=== PATIENT | female | born 1980 | race Hispanic/Latino ===

== ENCOUNTER 2016-05-23 10:41 | Emergency (ER) | payer OTHER ==
[~2016-05-23] VITALS: Ht 162.6 cm; Wt 86.2 kg
--- NOTE | 2016-05-23 11:02 | ED GI/GU/ABDOMINAL COMPLAINT ---
History of Present Illness General Chief Complaint: Abdominal Pain/Flank Pain Stated Complaint: BIBA ABD PAIN Source: patient Exam Limitations: clinical condition Allergies Coded Allergies: No Known Drug Allergies (05/23/16) Reconcile Medications Oxycodone HCl/Acetaminophen (Percocet 5-325 MG Tablet) 5 MG-325 MG TABLET 1 TAB PO Q6H PRN PAIN Triage Note: C/O SUDDEN ONSET OF LEFT SIDED ABDOMINAL PAIN, X 1 HOUR, DENIES VOMITING OR DIARRHEA. LMP: 05/21. PMH: ANEMEA Triage Nurses Notes Reviewed? yes ? n Is pt currently ? No HPI: Patient is a 35-year-old female presents complaining of severe 10 out of 10 left flank pain. Pain sun onset this morning when patient went to sit up in bed. No exacerbating or alleviating factors. Positive associated nausea and vomiting. Patient is currently on her menstrual period. Patient has a history of ovarian cysts, reports this pain feels different than previous pain. Last bowel movement was this morning and normal. Patient denies dysuria, urgency, frequency, hematemesis, fevers, chills (ADRIEL MORGAN) Vital Signs & Intake/Output Vital Signs & Intake/Output Vital Signs Date Time Temp Pulse Resp B/P Pulse O2 O2 Flow FiO2 Ox Delivery Rate 05/23 1715 99.5 93 16 108/62 98 Room Air 05/23 1420 99.5 114 16 117/63 98 Room Air 05/23 1356 100.7 05/23 1341 100.7 05/23 1319 110 18 133/77 99 Room Air 05/23 1128 16 143/78 99 Room Air 05/23 1115 Room Air 05/23 1115 156/76 05/23 1050 99.0 100 18 153/73 100 Room Air Past History Travel History Traveled to [place] past 21 day No Medical History Any Pertinent Medical History? see below for history Blood Disorders: anemia Surgical History Surgical History: non-contributory Psychosocial History What is your primary language Citizen Of [place] Tobacco Use: Never used Family History Hx Contributory? No (ADRIEL MORGAN) Review of Systems Review of Systems Constitutional: Denies: chills, fever. EENTM: Reports: no symptoms. Respiratory: Denies: cough, short of breath. Cardiovascular: Denies: chest pain. GI: Reports: abdominal pain, nausea, vomiting. Denies: diarrhea. Genitourinary: Denies: dysuria, frequency, urgency. Musculoskeletal: Reports: back pain. Skin: Reports: no symptoms. Neurological/Psychological: Reports: no symptoms. Hematologic/Endocrine: Reports: no symptoms. Immunologic/Allergic: Reports: no symptoms. (PETER MYERS,ADRIEL) Physical Exam Physical Exam General Appearance: alert, awake, severe distress Head: atraumatic, normal appearance Eyes: Bilateral: normal appearance, PERRL, EOMI. Ears, Nose, Throat, Mouth: hearing grossly normal, moist mucous membrane Neck: normal inspection, supple, full range of motion Respiratory: normal breath sounds, chest non-tender, no respiratory distress, lungs clear Cardiovascular: tachycardia (REGULAR RHYTHM, NO MURMUR) Gastrointestinal: normal bowel sounds, soft, left mid abdominal tenderness with guarding Back: normal inspection, normal range of motion, CVA tenderness (L) Extremities: normal range of motion Neurologic/Psych: no motor/sensory deficits, awake, alert, oriented x 3, normal gait Skin: intact, normal color, warm/dry Core Measures ACS in differential dx? No Severe Sepsis Present: No Septic Shock Present: No (ADRIEL MORGAN) Progress Differential Diagnosis: ovarian cyst, ovarian torsion, uterine fibroids, kidney stone, pyelonephritis, diverticulitis, intra-abdominal abscess, PID, anemia, internal bleeding Diagnostic Imaging: Viewed by Me: Radiology Read, CT Scan. Discussed w/RAD: Radiology Read, CT Scan. Radiology Impression: PATIENT: ANJU ESCALERA PRESENT AGE: 35 PATIENT ACCOUNT NO: [id number] : 82 LOCATION: [facility] ORDERING PHYSICIAN: ADRIEL MYERS SERVICE DATE: 05/23/16 EXAM TYPE: US - US-TRANSVAGINAL EXAMINATION: TRANSVAGINAL AND TRANSABDOMINAL ULTRASOUND OF THE PELVIS CLINICAL INFORMATION: Severe left flank pain and left pelvic pain. History of ovarian cyst. COMPARISON: CT abdomen and pelvis from the same date TECHNIQUE: Real-time scanning of the pelvis is acquired via transabdominal and transvaginal approach. Transvaginal images were obtained for more detailed evaluation of the ovaries and endometrium. FINDINGS: UTERUS: Anteverted. Enlarged, measuring 11.8 x 7.5 x 8.8 cm (SAG x AP x TRANS). A 1.6 x 1.8 x 1.7 cm hypoechoic focus within the endometrium near the fundus has increased through transmission and no internal blood flow on color Doppler. This is of uncertain etiology, potentially a endometrial cyst. A polyp is also a possibility, though less likely. A 1.7 cm fibroid is likely present in the left anterolateral aspect of uterine body, though was not discretely measured. The junctional zone is not well seen. Maximum Endometrial Thickness: 0.9 cm ( exclusive of the cystic focus near the fundus). Cervical Length: 3.3 cm. Nabothian cysts are present within the cervix. OVARIES AND ADNEXA: Ovaries are normal in size and appearance. No adnexal mass. Multiple peripheral follicles are present bilaterally, measuring between 0.4 and 0.7 cm. Arterial and venous waveforms are present in both ovaries on spectral Doppler evaluation. Right Ovary: 2.6 x 2.0 x 2.1 cm, volume 6 mL. Left Ovary: 2.8 x 2.0 x 1.9 cm, volume 5.5 mL. FREE FLUID: None. IMPRESSION: 1. No acute intrapelvic abnormalities. 2. Large uterus with a single discrete 1.7 cm uterine fibroid. Additional smaller or indistinct fibroids are possible. Indistinctness of the junctional zone of the myometrium raises the possibility of adenomyosis, although this is nonspecific. Consider correlation with pelvic MRI if warranted. 3. A 1.7 cm hypoechoic cystic focus within the endometrial canal this is of uncertain etiology, potentially due to early menstrual changes. Correlation with the phase of menstrual cycle is advised. This cause either further evaluated with MRI. 4. Multiple peripheral follicles in both ovaries, a nonspecific appearance that can be seen with polycystic ovarian syndrome (given the appropriate clinical and laboratory findings). DICTATED BY: GREG JESUS MD DATE/TIME DICTATED:05/23/161254 MEDICAL ESTHETICIAN:JUANCARLOS DATE/TIME TRANSCRIBED:05/23/161254 CONFIDENTIAL, DO NOT COPY WITHOUT APPROPRIATE AUTHORIZATION. <Electronically signed in Other Vendor System> SIGNED BY: GREG JESUS MD 05/23/16 1313, PATIENT: ANJU ESCALERA PRESENT AGE: 35 PATIENT ACCOUNT NO: [id number] : 82 LOCATION: [facility] ORDERING PHYSICIAN: ADRIEL MYERS SERVICE DATE: 05/23/16 EXAM TYPE: CAT - CT ABD & PELVIS W/ O IV CONTRAS EXAMINATION: CT ABDOMEN AND PELVIS WITHOUT CONTRAST CLINICAL INFORMATION: Severe left flank pain. Evaluate for kidney stone. COMPARISON: Pelvic ultrasound performed the same day. TECHNIQUE: Multidetector volumetric imaging was performed from the superior aspect of the liver through the pubic symphysis. Sagittal and coronal reformatted images were obtained on the technologist's workstation. DLP: 484 mGy-cm FINDINGS: LUNG BASES: The visualized lung bases are unremarkable. LIVER, GALLBLADDER, AND BILIARY TREE: The liver is normal in size, shape, and attenuation. No focal hepatic lesion or biliary ductal dilatation is present. The gallbladder is unremarkable with no evidence of radiopaque gallstones, gallbladder wall thickening, or obvious pericholecystic inflammatory changes. PANCREAS: Unremarkable. SPLEEN: Unremarkable. ADRENAL GLANDS: Unremarkable. KIDNEYS AND URETERS: The kidneys are normal in size, shape, and attenuation. No hydronephrosis or hydroureter seen. No perinephric stranding. There is a 0.2 cm left midpole nonobstructing calculus 10.5 cm from the posterior axillary line. There are adjacent 0.2 cm right lower pole calculi 11 cm from the posterior axillary line. BLADDER: Unremarkable. GASTROINTESTINAL TRACT: The stomach and small bowel appear unremarkable. No dilated loops of bowel or evidence of obstruction. Normal appendix. No colonic wall thickening or inflammatory changes. No free air or free fluid. ABDOMINAL WALL: No significant hernia is appreciated. LYMPH NODES: Normal. VASCULAR: Normal caliber aorta. Multiple phleboliths are noted. PELVIC VISCERA: The uterus is prominent with lobulations. There is somewhat heterogeneous attenuation in the region of the lobulations, suggestive of uterine fibroids. The endometrial abnormality seen on the ultrasound is not well visualized on this CT. No adnexal mass. OSSEOUS STRUCTURES: No acute or suspicious osseous abnormality. IMPRESSION : 1. No hydronephrosis. Tiny bilateral nonobstructing renal calculi. 2. Prominent uterus with heterogeneous lobulations suggestive of uterine fibroids. The endometrial abnormality which was visualized on the ultrasound is not well seen on this study. DICTATED BY: TELLO DOVE,AMI DATE/TIME DICTATED:1254 MEDICAL ESTHETICIAN:JUANCARLOS DATE/TIME TRANSCRIBED:05/23/161254 CONFIDENTIAL, DO NOT COPY WITHOUT APPROPRIATE AUTHORIZATION. <Electronically signed in Other Vendor System> SIGNED BY: TELLO DOVE,AMI 05/23/16 1311 Initial ED EKG: none (ADRIEL MORGAN) Plan of Care: Orders Procedure Date/time Status BLOOD PRODUCT PICKUP 05/23 1322 Active LEUKOCYTE POOR (PACKED CELLS) 05/23 1139 Active Add-on Test (ER Only) 05/23 1136 Active TYPE & SCREEN (NOT X-MATCH) 05/23 1115 Active Add-on Test (ER Only) 05/23 1108 Active URINALYSIS 05/23 1056 Complete HUMAN BETA HCG SCREEN 05/23 1056 Complete COMPREHENSIVE METABOLIC PANEL 05/23 1056 Complete CBC WITHOUT DIFFERENTIAL 05/23 1056 Complete Laboratory Tests 05/23/16 1200: Urinalysis LIGHT H, Urine Color YEL, Urine Clarity CLDY H, Urine pH 6.0, Ur Specific [place] 1.025, Urine Protein 30 H, Urine Ketones NEG, Urine Nitrite NEG, Urine Bilirubin NEG, Urine Urobilinogen 0.2, Ur Leukocyte Esterase TRACE H , Ur Microscopic SEDIMENT EXAMINED, Urine RBC 5-10 H, Urine WBC 5-10 H, Ur Epithelial Cells MANY H, Urine Bacteria MANY H, Urine Hemoglobin LARGE H, Urine Glucose NEG 05/23/16 1115: Anion Gap 11, Estimated GFR > 60, BUN/Creatinine Ratio 13.3, Glucose 103 H, Calcium 9.3, Total Bilirubin 0.6, AST 37 H, ALT 31, Alkaline Phosphatase 77, Total Protein 7.9, Albumin 4.2, Globulin 3.7, Albumin/Globulin Ratio 1.1, Total Beta HCG NEGATIVE, CBC w Diff MAN DIFF ORDERED, RBC 3.25 L, MCV 61.0 L, MCH 17.3 L, RDW 22.6 H, MPV 7.4, Gran % 85.0 H, Lymphocytes % 14.6 L, Monocytes % 0.1 L, Eosinophils % 0.3, Basophils % 0 L, Absolute Granulocytes 8.3 H, Absolute Lymphocytes 1.4, Absolute Monocytes 0 L, Absolute Eosinophils 0, Absolute Basophils 0, Platelet Estimate VERIFIED BY SMEAR, Polychromasia 1+, Hypochromic-Microcytic 2+, Poikilocytosis FEW, Microcytic Cells 2+, PUBS MCHC 28.3 L 05/23/2016 11:40:15 AM: Pain moderately improved. Discussed results of CBC with patient. Patient reports that she has chronic anemia, has required blood transfusions in the past. Patient does not know the source of her anemia, does not have a primary doctor or RA[employer]ROAD [employer]ER at this time. Patient reports that she has had heavy menstrual periods previously. 05/23/2016 12:00:27 PM: Discussed with Dr. Foster. Patient tolerated blood transfusion well. Patient ambulatory without difficulty , no chest pain or dyspnea. Appears stable for discharge after blood transfusion, stressed importance of close outpatient follow-up. (ADRIEL MORGAN) Departure Departure Disposition: HOME OR SELF CARE Condition: Stable Clinical Impression Primary Impression: Left flank pain Secondary Impressions: Anemia, Uterine fibroid Referrals: TIMOTHY DOVE,KUSH CASTELLANOS MD,ADRIEL Huizar Additional Instructions: Follow up with Dr. Castellanos(credit control assistant) for further evaluation of your pain and heavy menstrual bleeding. Also follo wup with Dr. Lay(primary doctor) for further evaluation. Call in the morning for appointment to be seen within 1 week for further evaluation. Return to the ER if pain increasing, unable to stay hydrated, lightheaded, shortness of breath, chest pain or worsening of symptoms. Departure Forms: Customer Survey General Discharge Information Prescriptions: Current Visit Scripts Oxycodone HCl/Acetaminophen (Percocet 5-325 MG Tablet) 1 TAB PO Q6H PRN PAIN #10 TAB (ADRIEL MORGAN) PA/FIELD ARTILL[employer] OPERATIONS SPECIALIST Co-Sign Statement Statement: ED Attending supervision documentation- [] I saw and evaluated the patient. I have also reviewed all the pertinent lab results and diagnostic results. I agree with the findings and the plan of care as documented in the PA's/FIELD ARTILL[employer] OPERATIONS SPECIALIST's documentation. [X] I have reviewed the ED Record and agree with the PA's/FIELD ARTILLERY OPERATIONS SPECIALIST's documentation. [] Additions or exceptions (if any) to the PAs/FIELD ARTILLERY OPERATIONS SPECIALIST's note and plan are summarized below: [] (TRACY DOVE,CLAUS Newby)
[2016-05-23 11:27] LABS: ABSOLUTE EOSINOPHIL COUNT 0 /CUMM (0.0-0.7); EOSINOPHIL % 0.3 % (0-5); MEAN CORPUSCULAR HGB 17.3 PG (27.0-31.0)
[2016-05-23 11:30] LABS: ABSOLUTE BASOPHIL COUNT 0 /CUMM (0.0-0.2); ABSOLUTE GRANULOCYTE CT 8.3 /CUMM (1.4-6.5); ABSOLUTE LYMPH COUNT 1.4 /CUMM (1.2-3.4); ABSOLUTE MONOCYTE COUNT 0 /CUMM (0.10-0.60); BASOPHIL % 0 % (0.0-2.0); MEAN CORPUSCULAR HGB CONC 28.3 G/DL (33.0-37.0); MEAN PLATELET VOLUME 7.4 FL (7.4-10.4); PLATELET COUNT 501 /CUMM (130-400); RBC DISTRIBUTION WIDTH 22.6 % (11.5-14.5); RED BLOOD CELL CT 3.25 /CUMM (4.20-5.40); WHITE BLOOD CELL COUNT 9.8 /CUMM (4.8-10.8)
[2016-05-23 11:33] LABS: HEMATOCRIT 19.8 % (37-47)
--- NOTE | 2016-05-23 13:11 | CT SCAN REPORT ---
EXAMINATION: CT ABDOMEN AND PELVIS WITHOUT CONTRAST CLINICAL INFORMATION: Severe left flank pain. Evaluate for kidney stone. COMPARISON: Pelvic ultrasound performed the same day. TECHNIQUE: Multidetector volumetric imaging was performed from the superior aspect of the liver through the pubic symphysis. Sagittal and coronal reformatted images were obtained on the technologist's workstation. DLP: 484 mGy-cm FINDINGS: LUNG BASES: The visualized lung bases are unremarkable. LIVER, GALLBLADDER, AND BILIARY TREE: The liver is normal in size, shape, and attenuation. No focal hepatic lesion or biliary ductal dilatation is present. The gallbladder is unremarkable with no evidence of radiopaque gallstones, gallbladder wall thickening, or obvious pericholecystic inflammatory changes. PANCREAS: Unremarkable. SPLEEN: Unremarkable. ADRENAL GLANDS: Unremarkable. KIDNEYS AND URETERS: The kidneys are normal in size, shape, and attenuation. No hydronephrosis or hydroureter seen. No perinephric stranding. There is a 0.2 cm left midpole nonobstructing calculus 10.5 cm from the posterior axillary line. There are adjacent 0.2 cm right lower pole calculi 11 cm from the posterior axillary line. BLADDER: Unremarkable. GASTROINTESTINAL TRACT: The stomach and small bowel appear unremarkable. No dilated loops of bowel or evidence of obstruction. Normal appendix. No colonic wall thickening or inflammatory changes. No free air or free fluid. ABDOMINAL WALL: No significant hernia is appreciated. LYMPH NODES: Normal. VASCULAR: Normal caliber aorta. Multiple phleboliths are noted. PELVIC VISCERA: The uterus is prominent with lobulations. There is somewhat heterogeneous attenuation in the region of the lobulations, suggestive of uterine fibroids. The endometrial abnormality seen on the ultrasound is not well visualized on this CT. No adnexal mass. OSSEOUS STRUCTURES: No acute or suspicious osseous abnormality. IMPRESSION: 1. No hydronephrosis. Tiny bilateral nonobstructing renal calculi. 2. Prominent uterus with heterogeneous lobulations suggestive of uterine fibroids. The endometrial abnormality which was visualized on the ultrasound is not well seen on this study.
--- NOTE | 2016-05-23 13:13 | ULTRASOUND REPORT ---
EXAMINATION: TRANSVAGINAL AND TRANSABDOMINAL ULTRASOUND OF THE PELVIS CLINICAL INFORMATION: Severe left flank pain and left pelvic pain. History of ovarian cyst. COMPARISON: CT abdomen and pelvis from the same date TECHNIQUE: Real-time scanning of the pelvis is acquired via transabdominal and transvaginal approach. Transvaginal images were obtained for more detailed evaluation of the ovaries and endometrium. FINDINGS: UTERUS: Anteverted. Enlarged, measuring 11.8 x 7.5 x 8.8 cm (SAG x AP x TRANS). A 1.6 x 1.8 x 1.7 cm hypoechoic focus within the endometrium near the fundus has increased through transmission and no internal blood flow on color Doppler. This is of uncertain etiology, potentially a endometrial cyst. A polyp is also a possibility, though less likely. A 1.7 cm fibroid is likely present in the left anterolateral aspect of uterine body, though was not discretely measured. The junctional zone is not well seen. Maximum Endometrial Thickness: 0.9 cm (exclusive of the cystic focus near the fundus). Cervical Length: 3.3 cm. Nabothian cysts are present within the cervix. OVARIES AND ADNEXA: Ovaries are normal in size and appearance. No adnexal mass. Multiple peripheral follicles are present bilaterally, measuring between 0.4 and 0.7 cm. Arterial and venous waveforms are present in both ovaries on spectral Doppler evaluation. Right Ovary: 2.6 x 2.0 x 2.1 cm, volume 6 mL. Left Ovary: 2.8 x 2.0 x 1.9 cm, volume 5.5 mL. FREE FLUID: None. IMPRESSION: 1. No acute intrapelvic abnormalities. 2. Large uterus with a single discrete 1.7 cm uterine fibroid. Additional smaller or indistinct fibroids are possible. Indistinctness of the junctional zone of the myometrium raises the possibility of adenomyosis, although this is nonspecific. Consider correlation with pelvic MRI if warranted. 3. A 1.7 cm hypoechoic cystic focus within the endometrial canal this is of uncertain etiology, potentially due to early menstrual changes. Correlation with the phase of menstrual cycle is advised. This cause either further evaluated with MRI. 4. Multiple peripheral follicles in both ovaries, a nonspecific appearance that can be seen with polycystic ovarian syndrome (given the appropriate clinical and laboratory findings).
[2016-05-23] MEDS ORDERED: PERCOCET 5-3251 EACH PO (16:07)
[2016-05-23 17:15] VITALS: BP 108/62
[2016-05-24] MEDS ORDERED: IMITREX50 M1 PO (13:21)
[2016-05-24] MEDS ORDERED: FIORICET 50-301 EACH PO (13:22)
== END 2016-05-23 17:17 ==
LOC: ERH
PROVIDERS: Physician Assistant
DX: D25.9 Leiomyoma of uterus, unspecified (principal); D64.9 Anemia, unspecified
CPT/HCPCS: 74176; 81001; 81025; 86920; 96374; 96375; 96376; 99291; J1885; J2405; P9016

== ENCOUNTER 2016-05-24 05:20 | Emergency (ER) | payer OTHER ==
[~2016-05-24] VITALS: Ht 162.6 cm; Wt 77.1 kg
[~2016-05-24 05:20] MED LIST: PERCOCET 5-3251 EACH PO
--- NOTE | 2016-05-24 05:38 | ED GI/GU/ABDOMINAL COMPLAINT ---
History of Present Illness General Chief Complaint: Abdominal Pain/Flank Pain Stated Complaint: ABD PAIN Source: patient, old records, EMS Exam Limitations: no limitations Vital Signs & Intake/Output Vital Signs & Intake/Output Vital Signs Date Time Temp Pulse Resp B/P Pulse O2 O2 Flow FiO2 Ox Delivery Rate 05/24 1157 98.7 80 20 110/60 96 Room Air 05/24 1000 86 120/60 05/24 0818 99.8 80 20 117/62 96 05/24 0624 101.5 05/24 0529 97 Room Air 05/24 0524 101.5 05/24 0522 114 19 133/80 97 Room Air Allergies Coded Allergies: No Known Drug Allergies (05/24/16) Reconcile Medications Oxycodone HCl/Acetaminophen (Percocet 5-325 MG Tablet) 5 MG-325 MG TABLET 1 TAB PO Q6H PRN PAIN Triage Note: TRIAGE: PATIENT BIBA FROM HOME W/ BELLO, GENERALIZED ABD PAIN AND BILATERAL LEG PAIN TODAY. PATIENT SEEN IN ER YESTERDAY FOR SAME AND DX W/ ?KIDNEY STONE. PATIENT REPORTS +N/V/D. DISCHARGED W/ RX FOR PERCOCET. PATIENT SCREAMING AND MOANING THROUGHOUT TRIAGE, ANSWERING SELECTIVE RN QUESTIONS THROUGHOUT TRIAGE. Triage Nurses Notes Reviewed? yes ? N Is pt currently ? No HPI: Patient presents to the emergency room with diffuse abdominal sharp stabbing cramping pain since yesterday. Pain is constant. There is no radiation outside of her abdominal area. The pain is 10 out of 10. Positive nausea but no vomiting. Patient is also complaining of cramps in both her legs which are constant. There are no aggravating or mitigating factors. There is no radiation. The pain is also 10 out of 10. Patient is also having a frontal throbbing headache. There are no aggravating and became factors. There is no photophobia. The pain is also 10 out of 10. Patient was seen in the emergency department yesterday for her abdominal pain. At that point she was not complaining of a headache or leg pain. Her laboratory work showed that she was anemic and the patient received a unit of blood. Patient also had an ultrasound and a CAT scan and was given follow-up. Patient is crying and yelling loudly upon arrival to the emergency department. (NASIR DOVE,MATTHEW Houser) Past History Travel History Traveled to [place] past 21 day No Medical History Any Pertinent Medical History? see below for history Neurological: NONE EENT: NONE Cardiovascular: NONE Respiratory: NONE Gastrointestinal: NONE Hepatic: NONE Renal: NONE Musculoskeletal: NONE Psychiatric: NONE Endocrine: NONE Blood Disorders: anemia Cancer(s): NONE RN TRAUMA/Reproductive: NONE Surgical History Surgical History: non-contributory Psychosocial History What is your primary language Tuvaluan Tobacco Use: Current Daily Use Daily Tobacco Use Amount/Type: => 5 Cigarettes daily ETOH Use: occasional use Illicit Drug Use: denies illicit drug use Family History Hx Contributory? No (NASIR DOVE,MATTHEW Houser) Review of Systems Review of Systems Constitutional: Reports: no symptoms. EENTM: Reports: no symptoms. Respiratory: Reports: no symptoms. Cardiovascular: Reports: no symptoms. GI: Reports: see HPI, abdominal pain. Genitourinary: Reports: no symptoms. Musculoskeletal: Reports: see HPI, muscle pain. Skin: Reports: no symptoms. Neurological/Psychological: Reports: see HPI, headache. Hematologic/Endocrine: Reports: no symptoms. Immunologic/Allergic: Reports: no symptoms. All Other Systems: Reviewed and Negative (NASIR DOVE,MATTHEW Houser) Physical Exam Physical Exam General Appearance: well developed/nourished, alert, awake, severe distress Head: atraumatic, normal appearance Eyes: Bilateral: PERRL, EOMI. Ears, Nose, Throat, Mouth: hearing grossly normal, moist mucous membrane Neck: normal inspection, supple, full range of motion Respiratory: normal breath sounds, chest non-tender, no respiratory distress, lungs clear Cardiovascular: regular rate/rhythm, normal peripheral pulses Gastrointestinal: normal bowel sounds, soft, VOLUNTARY GUARDING. nO PAIN WITH STRETCHING MOVEMENT HOWEVER WILL NOT LET ME PALPATE HER ABDOMEN., PATIENT ALLOWED ME TO PUT MY STETHOSCOPE ON HER ABDOMEN TO LISTEN FOR BOWEL SOUNDS HER ABDOMEN WAS SOFT. pATIENT KEPT TRYING TO PUSH MY HAND AWAY. WITH SLOW STEADY PRESSURE THERE IS NO GUARDING. Back: normal inspection Extremities: normal range of motion Neurologic/Psych: no motor/sensory deficits, awake, alert, oriented x 3 Skin: intact, normal color, warm/dry Core Measures ACS in differential dx? No Severe Sepsis Present: No Septic Shock Present: No (MATTHEW BEST MD) Progress Differential Diagnosis: AAA, appendicitis, biliary colic, diverticulitis, ovarian cyst, ovarian torsion, pancreatitis, PID/cervicitis, peptic ulcer, PUD/ GERD Plan of Care: Orders Procedure Date/time Status RAPID VIRAL INFLUENZA A 05/24 530 Complete URINALYSIS 05/24 530 Complete LIPASE 05/24 530 Complete COMPREHENSIVE METABOLIC PANEL 05/24 530 Complete CBC WITHOUT DIFFERENTIAL 05/24 530 Complete AMYLASE 05/24 530 Complete Laboratory Tests 05/24/16 0808: Urinalysis LIGHT H, Urine Color STRAW, Urine Clarity CLEAR, Urine pH 6.5, Ur Specific [place] <= 1.005, Urine Protein NEG, Urine Ketones TRACE H, Urine Nitrite NEG, Urine Bilirubin NEG, Urine Urobilinogen 0.2, Ur Leukocyte Esterase NEG, Ur Microscopic SEDIMENT EXAMINED, Urine RBC 5-10 H, Urine WBC RARE, Ur Epithelial Cells FEW, Urine Bacteria FEW H, Urine Mucus RARE, Urine Hemoglobin MOD H, Urine Glucose NEG 05/24/16 0549: Anion Gap 9, Estimated GFR > 60, BUN/Creatinine Ratio 7.5, Glucose 100 H, Calcium 9.0, Total Bilirubin 1.0, AST 20, ALT 25, Alkaline Phosphatase 73, Total Protein 7.3, Albumin 3.7, Globulin 3.6, Albumin/Globulin Ratio 1.0 L, Amylase < 30 L, Lipase 18 L, CBC w Diff MAN DIFF ORDERED, RBC 3.22 L, MCV 63.6 L, MCH 18.7 L, RDW 24.8 H, MPV 6.6 L, Gran % 92.5 H, Lymphocytes % 3.8 L, Monocytes % 3.7, Eosinophils % 0, Basophils % 0 L, Absolute Granulocytes 13.0 H, Segmented Neutrophils 89 H, Band Neutrophils 3, Absolute Lymphocytes 0.5 L, Lymphocytes 6 L, Monocytes 1 L, Absolute Monocytes 0.5, Absolute Eosinophils 0 , Basophils 1, Absolute Basophils 0, Platelet Estimate ADEQUATE, Polychromasia 1 +, Hypochromic-Microcytic 3+, Poikilocytosis 1+, Basophilic Stippling RARE, Anisocytosis 1+, Microcytic Cells 3+, Stomatocytes 1+, PUBS MCHC 29.5 L, Fld Total RBCs Counted 100 Microbiology 05/24 556 NASOPHARYN: Influenza Virus A & B Rapid Smear - COMP Initial ED EKG: none Hand-Off Endorsed To: YASMINE SARMIENTO MD Endorsed Time: 0700 Pending: other (RE-EVAL) Comments: Cat scan, ultrasound and lab work reviewed from her earlier visit. Given her anemia in the location of her pain he raises the possibility of sickle cell. Patient states she has no history of sickle cell and no sickle cells seen on the smear. Patient was able to stay still and was very quiet during the lab draw and IV insertion. Once the above was done she began rocking on the stretcher and screaming again. (NASIR DOVE,MATTHEW Houser) Departure Departure Disposition: HOME OR SELF CARE Condition: Stable Referrals: PATIENT HAS NO PRIMARY CARE DR (PCP/Family) Additional Instructions: RETURN FOR ANY CONCERNS (NASIR DOVE,MATTHEW Houser) Departure Time of Disposition: 1321 Clinical Impression Primary Impression: Abdominal pain, unspecified site Qualifiers: Abdominal location: generalized Qualified Code: R10.84 - Generalized abdominal pain Secondary Impressions: Migraine Qualifiers: Migraine type: unspecified Status migrainosus presence: without status migrainosus Intractability: not intractable Qualified Code: G43.909 - Migraine, unspecified, not intractable, without status migrainosus Departure Forms: General Discharge Information Prescriptions: Current Visit Scripts Sumatriptan Succinate (Imitrex) 1 TAB PO AD #9 TAB 1-2 tabs every hour until headache gone or 4 tabs taken per day (TORSTEN DOVE,YASMINE)
[2016-05-24 05:58] LABS: ABSOLUTE BASOPHIL COUNT 0 /CUMM (0.0-0.2); ABSOLUTE EOSINOPHIL COUNT 0 /CUMM (0.0-0.7); ABSOLUTE LYMPH COUNT 0.5 /CUMM (1.2-3.4); ABSOLUTE MONOCYTE COUNT 0.5 /CUMM (0.10-0.60); BASOPHIL % 0 % (0.0-2.0); EOSINOPHIL % 0 % (0-5); GRANULOCYTE % 92.5 % (42.2-75.2); HEMATOCRIT 20.5 % (37-47); MEAN CORPUSCULAR HGB 18.7 PG (27.0-31.0); MEAN CORPUSCULAR HGB CONC 29.5 G/DL (33.0-37.0); MEAN CORPUSCULAR VOLUME 63.6 FL (81.0-99.0); MEAN PLATELET VOLUME 6.6 FL (7.4-10.4); PLATELET COUNT 414 /CUMM (130-400); RBC DISTRIBUTION WIDTH 24.8 % (11.5-14.5); RED BLOOD CELL CT 3.22 /CUMM (4.20-5.40); WHITE BLOOD CELL COUNT 14.1 /CUMM (4.8-10.8)
[2016-05-24] MEDS ORDERED: IMITREX50 M1 PO (13:21)
[2016-05-24] MEDS ORDERED: FIORICET 50-301 EACH PO (13:22)
[2016-05-24 13:42] VITALS: BP 112/84
== END 2016-05-24 13:42 ==
LOC: ERH 05:20
PROVIDERS: Emergency Medicine
DX: R10.9 Unspecified abdominal pain (principal); G43.909 Migraine, unspecified, not intractable, without status migrainosus
CPT/HCPCS: 81001; 87804; 87804-59; 96361; 96372; 96374; 96375; J0131; J1200; J1885; J2405; J2765; J3030

== ENCOUNTER 2016-08-29 18:47 | Emergency (ER) | payer OTHER ==
[~2016-08-29] VITALS: Ht 165.1 cm; Wt 78.0 kg
[~2016-08-29 18:47] MED LIST changes: +FIORICET 50-301 EACH PO; +IMITREX50 M1 PO
[2016-08-29 18:54] VITALS: BP 131/80
--- NOTE | 2016-08-29 20:24 | ED HAND/WRIST INJURY COMPLAINT ---
History of Present Illness General Chief Complaint: Hand or Wrist Injury Stated Complaint: SWOLLEN? LEFT RING FINGER Source: patient Exam Limitations: no limitations Vital Signs & Intake/Output Vital Signs & Intake/Output Vital Signs Date Time Temp Pulse Resp B/P B/P Pulse O2 O2 Flow FiO2 Mean Ox Delivery Rate 08/29 1854 98.4 102 16 131/80 97 Room Air Allergies Coded Allergies: naproxen (NAUSEA 08/29/16) Reconcile Medications Doxycycline Hyclate 100 MG TABLET 1 TAB PO BID PARONYCHIA Oxycodone HCl/Acetaminophen (Percocet 5-325 MG Tablet) 5 MG-325 MG TABLET 1 TAB PO BID PAIN Triage Note: PT HERE FOR SWELLING IN HER LEFT RING FINGER TIP OF FINGER SWOLLEN NO INJURY. Triage Nurses Notes Reviewed? yes Occurred: just prior to arrival Duration: hour(s):, constant Timing: recent history Injury Environment: home Severity: moderate, severe Pain/Injury Location: Left: 4th finger. Method of Injury: unknown No Modifying Factors: none : No Patient currently breastfeeds: No HPI: 36-year-old female comes into emergency room with swelling and pain to her left distal ring finger. Patient is to biting her nails. Symptoms for a few days. Getting progressively worse. Throbbing. Swollen. Denies any other system symptoms. (DEIRDRE JEAN) Past History Travel History Traveled to [place] past 21 day No Medical History Any Pertinent Medical History? see below for history Neurological: NONE EENT: NONE Cardiovascular: NONE Respiratory: NONE Gastrointestinal: NONE Hepatic: NONE Renal: NONE Musculoskeletal: NONE Psychiatric: NONE Endocrine: NONE Blood Disorders: anemia Cancer(s): NONE STARCH DUMPER/Reproductive: NONE Surgical History Surgical History: non-contributory Psychosocial History What is your primary language Greenlandic Tobacco Use: Current Daily Use Daily Tobacco Use Amount/Type: => 5 Cigarettes daily ETOH Use: occasional use Illicit Drug Use: denies illicit drug use Family History Hx Contributory? No (DEIRDRE JEAN) Review of Systems Review of Systems Constitutional: Reports: no symptoms. EENTM: Reports: no symptoms. Respiratory: Reports: no symptoms. Cardiovascular: Reports: no symptoms. GI: Reports: no symptoms. Genitourinary: Reports: no symptoms. Musculoskeletal: Reports: see HPI. Skin: Reports: see HPI. Neurological/Psychological: Reports: no symptoms. Hematologic/Endocrine: Reports: no symptoms. Immunologic/Allergic: Reports: no symptoms. All Other Systems: Reviewed and Negative (DEIRDRE JEAN) Physical Exam Physical Exam General Appearance: well developed/nourished, mild distress Head: atraumatic Eyes: Bilateral: normal appearance. Ears, Nose, Throat: normal ENT inspection, hearing grossly normal Neck: normal inspection Cardiovascular/Respiratory: no respiratory distress Back: normal inspection Hand Left: swelling, tender, 4th finger Hand Right: normal inspection, normal range of motion Neurologic/Tendon: normal sensation, normal motor functions, normal tendon functions, responds to pain, no evidence tendon injury, no pulse deficit Skin: intact, normal color, warm/dry Lymphatic: no anterior cervical peyton (DEIRDRE JEAN) Progress Differential Diagnosis: abscess, cellulitis, contusion, compartment syndrome, dislocation, felon, paronychia Plan of Care: Warm soaks. Take antibiotics as prescribed. Patient elected to use topical anesthetic as opposed to digital block. (DEIRDRE JEAN) Departure Departure Disposition: HOME OR SELF CARE Condition: Stable Clinical Impression Primary Impression: Paronychia of finger of left hand Referrals: PATIENT HAS NO PRIMARY CARE DR (PCP/Family) Additional Instructions: Take Percocet and doxycycline as prescribed. Warm soaks. Have recheck in 3-5 days. Return if any concerns worsening symptoms. Please go over all results of today's visit with your primary care doctor. Contact your primary care doctor to let them know you were here in the emergency room. There may be nonspecific findings which may not be related to your visit today here in the emergency room but may require further evaluation and chronic monitoring by your primary care doctor. If you had a laceration today the chance of foreign body always remains. You should follow-up with your primary care doctor for recheck in 3-5 days for a wound check. If you had an x-ray done there is a chance that a fracture could have been missed on initial read and you should follow-up with your primary care doctor for repeat x-rays if symptoms persist. If your blood pressure was elevated here in the emergency room please have rechecked by her primary care doctor within the next 48 hours by your primary care doctor. If you were prescribed a narcotic here in the emergency room or any type of controlled substances you're not allowed to drive while taking this medication or operate any type of heavy machinery. Narcotics can make you feel lightheaded dizziness nausea and can cause constipation. You may need to continuous pickling line pickler a stool softener. Thank you for choosing [facility] emergency room. Please return to the emergency room immediately if you have any other concerns worsening of symptoms. Departure Forms: Customer Survey General Discharge Information Prescriptions: Current Visit Scripts Doxycycline Hyclate 1 TAB PO BID #20 TAB Oxycodone HCl/Acetaminophen (Percocet 5-325 MG Tablet) 1 TAB PO BID #10 TAB (DEIRDRE JEAN) PA/HEEL PACKER Co-Sign Statement Statement: ED Attending supervision documentation- [] I saw and evaluated the patient. I have also reviewed all the pertinent lab results and diagnostic results. I agree with the findings and the plan of care as documented in the PA's/HEEL PACKER's documentation. [X] I have reviewed the ED Record and agree with the PA's/HEEL PACKER's documentation. [] Additions or exceptions (if any) to the PAs/HEEL PACKER's note and plan are summarized below: [] (ANSIR DOVE,MATTHEW Houser) Procedures Incision and Drainage Site: left distal ring finger Blade Size: 11 I & D Procedure: Yes: betadine prep, sterile drapes applied. Progress: Chlorhexidine prep, ethyl chloride used to topically numb, pus 2 mL on exam (DEIRDRE JEAN)
[2016-08-29] MEDS ORDERED: PERCOCET 5-3251 EACH PO (20:26)
[2016-08-29] MEDS ORDERED: DOXYCYCLINE HY100 M4 PO (20:26)
== END 2016-08-29 20:40 ==
LOC: ERH 18:47
DX: L03.012 Cellulitis of left finger (principal)